=== PATIENT | female | born 1930 | race Caucasian/White ===

== ENCOUNTER 2018-09-08 05:20 | Day surgery (SDC) | payer OTHER ==
[~2018-09-08] VITALS: Ht 162.6 cm; Wt 89.4 kg
--- NOTE | ~2018-09-08 | O ---
[facility] [place] [address] OPERATIVE REPORT Name: HORTENCIA HUBBARD Nolberto Room #: 150-1 [facility]..#: [id number] Admission: 09/08/18 ������������������ Attend Phys: Erin Lares, Discharge: ������������������ Date of : 34 Report #: [id number] THIS REPORT FOR: //name// CC: Taina Lares DATE OF SERVICE: 09/08/2018 PREOPERATIVE DIAGNOSIS: Left ring finger trigger finger. POSTOPERATIVE DIAGNOSIS: Left ring finger trigger finger. PROCEDURE PERFORMED: Left ring finger A1 shi release. SURGEON: Erin Lares MD ANESTHESIA: Local MAC anesthesia. ESTIMATED BLOOD LOSS: Minimal. TOURNIQUET TIME: 6 minutes. COMPLICATIONS: None. CONDITION: Stable. DISPOSITION: Recovery room. INDICATIONS: The patient is an 88-year-old female with the above-mentioned diagnosis. She elects for operative treatment. The risks, benefits, alternatives and complications were discussed including but not limited to infection, damage to vessels or nerves, incomplete relief of her symptoms. Informed consent was obtained. The correct extremity was identified and labeled by myself after verbal confirmation of the patient as well as visual confirmation and signed informed consent. DESCRIPTION OF PROCEDURE: The patient was brought back to the OR and placed on operating table in supine position. She received preoperative antibiotics. Tourniquet was placed over padding on the patient's left extremity. Left upper extremity was sterilely prepped and draped in usual fashion. Pause was taken to verify correct patient, operative procedure, operative site, all concurred. After adequate sedation was achieved, a total of 2 mL of a mixture of 0.25% Marcaine and 1% lidocaine was injected subcutaneously to the proposed incision site. After adequate anesthesia was obtained, the arm was elevated, exsanguinated and tourniquet inflated. The entire procedure was done with 3.5 times loupe magnification. Next, approximately 1.2 cm incision was made [address] [address] OPERATIVE REPORT Name: HORTENCIA HUBBARD Room #: 150-1 [facility].#: [id number] Admission: 09/08/18 ������������������ Attend Phys: Erin Lares, Discharge: ������������������ Date of : 34 Report #: [id number] obliquely at the A1 shi in the left ring finger. Dissection was carried down through subcutaneous tissue with tenotomy scissors. A1 shi was easily identified and incised. Careful attention was placed to avoiding damage to the A2 shi. Each tendon was brought in gently through the incision to decrease any adhesion between the two tendons. The finger was taken through passive range of motion. Due to the sedation she was not able to comply with any active motion. However, the tendons glided smoothly. The wound was thoroughly irrigated. Skin was closed with 4-0 nylon suture. Wound was dressed with Adaptic and sterile gauze. She was placed in a bulky dressing. All fingers were pink with brisk capillary refill at the conclusion of the case after deflation of tourniquet. All sponge and needle counts were correct. The patient was transferred to postoperative recovery room in stable condition. ��������������������������������������������� ���������������������������������������� By: ��������������������������������������������� 1114 1320 Erin Lares MD /nt
[~2018-09-08 05:20] MED LIST: ASPIR 8181 MG PO; ASPIRIN325; ASPIRIN325 PO; ASTAXANTHIN4 MG PO; B-6; BACTRIM DS TAB1 EACH PO; BENICAR PO; BENICAR20 MG; BENICAR20 MG PO; BUMETANIDE0.5 MG PO; BUPROPION; CALCIUM; CARVEDILOL12.5 MG PO; CENTRUM MULTIV1 EACH; CENTRUM SILVER1 EAC1 PO; CENTRUM TABLET1 TAB PO; CITRACAL + D C1 EACH PO; CO Q-10100 MG PO; CYMBALTA60 MG PO; DETROL; DETROL LA4 MG PO; DETROL1 MG PO; ENDOCET 5-3251 EACH PO; ESTRADIOL42.5 GM VAG; FISH OIL 1,0001 EAC5 PO; FISH OIL 1,001000 M1 PO; GLUCOTROL XL2.5 MG; GLUCOTROL XL2.5 MG PO; GLUCOTROL XL5 MG PO; GLUCOTROL5 MG PO; HYDRALAZINE 5050 MG PO; HYDROCODON-ACE1 EAC1; HYDROCODON-ACE1 EAC1 PO; IMDUR 30 MG TAB30 M1 PO; JANUVIA 50 MG T50 M1 PO; JANUVIA50 MG; JANUVIA50 MG PO; K-DUR 20 MEQ T20 MEQ; K-DUR 20 MEQ T20 MEQ PO; LANTUS; LANTUS SC; LASIX 40 MG TAB40 M1; LASIX 40 MG TAB40 M1 PO; LEVEMIR FL100 UNIT/2 SUBQ; LIPITOR40 MG; LIPITOR40 MG PO; LIPITOR80 MG PO; LISINOPRIL10 MG PO; LUTEIN-ZEAXANT1 EAC1 PO; MUCINEX1200 MG PO; NEURONTIN 300300 M1 PO; NEURONTIN 400400 M1 PO; NEXIUM40 MG; NEXIUM40 MG PO; NOVOLOG FL100 UNIT/M SUBQ; OMEGA 3 FISH OIL; OXYCODONE HCL5 M1 PO; PAXIL40 MG; PAXIL40 MG PO; PERCOCET 5-3251 EACH PO; PERCOCET PO; PLAVIX 75 MG TA75 M1 PO; RANEXA500 MG PO; REMERON 30 MG T30 M1 PO; REMERON15 MG; REMERON15 MG PO; RESVERATROL100 MG; RESVERATROL100 MG PO; SENNA8.6 MG PO; SEROQUEL 25 MG25 M1 PO; TOPROL XL50 MG; TOPROL XL50 MG PO; TRICOR145 MG; TRICOR145 MG PO; VIT B; VITAMIN D-32000 UNIT PO; VITCB500GO PO; WELLBUTRIN 100100 MG PO; WELLBUTRIN SR200 MG PO; WELLBUTRIN XL300 M2 PO; [UNRECOGNIZED DRUG - OTHER]; [UNRECOGNIZED DRUG - OTHER]; [UNRECOGNIZED DRUG - REMARK]
[2018-09-08 09:34] LABS: CALCIUM 9.2 mg/dL (8.5-10.1); CREATININE 2.4 mg/dL (0.6-1.0); POTASSIUM 5.3 mmol/L (3.5-5.1)
[2018-09-08 10:17] VITALS: BP 120/70
[2018-09-08 11:35] VITALS: BP 120/70
--- NOTE | 2018-09-08 18:03 | EKG ---
[address] [address] ELECTROCARDIOGRAM REPORT Name: HORTENCIA HUBBARD Room #: [facility]#: [id number] ������������������ Admission: 09/08/18 ������������������ Attend Phys: Erin Lares, Discharge: 09/08/18 ������������������ Date of : 34 Report #: [id number] ����������������������������������������������������������������� [id number] THIS REPORT FOR: //name// [facility] Test Date: 2018-09-08 Test Time: 09:21:28 Pat Name: HORTENCIA HUBBARD Department: Room: 150 1 Gender: F [employer]: ELIZABETH : 1930 Requested By: Erin Lares Order Number: [id number] MD: Efra Bautista Measurements Intervals [place] Rate: 75 P: 26 WI: 190 QRS: -66 QRSD: 150 T: 81 QT: 484 QTc: 541 Interpretive Statements Sinus rhythm Atrial premature complex Left bundle-branch block Compared to ECG 04/19/2011 18:32:28 Atrial premature complex(es) now present Left bundle branch block is now present Electronically Signed On 09-08-2018 18:03:36 CDT by Efra Bautista [email or web address] ��������������������������������������������� <ELECTRONICALLY SIGNED> ���������������������������������������� By: Efra Bautista MD, [facility] ��������������������������������������������� 09/08/18 1803 0 0 Efra Bautista MD, [facility] /EPI
== END 2018-09-08 12:30 | disposition home or self-care (01) ==
LOC: TBA 05:20 → OR 05:20
PROVIDERS: Orthopaedic Surgery Hand Surgery
DX: M65.342 Trigger finger, left ring finger (principal); I10 Essential (primary) hypertension; E78.5 Hyperlipidemia, unspecified; E11.9 Type 2 diabetes mellitus without complications; K21.9 Gastro-esophageal reflux disease without esophagitis; F32.9 Major depressive disorder, single episode, unspecified; F41.9 Anxiety disorder, unspecified; Z88.8 Allergy status to other drugs, medicaments and biological substances; Z79.82 Long term (current) use of aspirin; Z79.899 Other long term (current) drug therapy; Z86.73 Personal history of transient ischemic attack (TIA), and cerebral infarction without residual deficits; Z95.5 Presence of coronary angioplasty implant and graft; Z95.0 Presence of cardiac pacemaker; Z85.828 Personal history of other malignant neoplasm of skin; Z79.4 Long term (current) use of insulin; Z90.710 Acquired absence of both cervix and uterus; Z98.41 Cataract extraction status, right eye; Z98.42 Cataract extraction status, left eye; Z95.1 Presence of aortocoronary bypass graft; Z85.51 Personal history of malignant neoplasm of bladder; Z98.890 Other specified postprocedural states
CPT/HCPCS: 50010; 50101; 50386; 56526; 57006; 57091; 62110; 62850; 70005